=== PATIENT | male | born 1930 | race Caucasian/White ===

== ENCOUNTER → 2019-05-02 | Outpatient (CLI) | payer MEDICARE | END | disposition home or self-care (01) | LOC: RAH 10:41 | PROVIDERS: ATTEND Otolaryngology Plastic Surgery within the Head & Neck | DX: D11.0 Benign neoplasm of parotid gland (principal); K11.1 Hypertrophy of salivary gland | CPT/HCPCS: 76536 ==

== ENCOUNTER 2020-09-15 07:38 | Day surgery (SDC) | payer MEDICARE ==
[2020-09-12 15:21] LABS: BASOPHILS % (AUTO) 0.3 % (0.0-5.0); EOSINOPHILS % (AUTO) 0.6 % (0.0-8.0); HEMATOCRIT 45.9 % (42-54); LYMPHOCYTES % (AUTO) 21.3 % (21.0-51.0); MEAN CORPUSCULAR HEMOGLOBIN 28.2 pg (27.0-33.0); MEAN CORPUSCULAR HGB CONC 31.8 g/dL (32.0-36.0); MEAN CORPUSCULAR VOLUME 88.6 fL (79-99); MONOCYTES % (AUTO) 7.2 % (3.0-13.0); NEUTROPHILS % (AUTO) 69.4 % (40.0-77.0); PLATELET COUNT (AUTO) 184 K/uL (130-400); RED BLOOD CELL COUNT(AUTO) 5.18 MIL/uL (4.50-6.20); RED CELL DISTRIBUTION WIDTH 16.3 % (11.0-15.5); WHITE BLOOD COUNT (AUTO) 7.8 K/uL (4.8-10.8)
[2020-09-12 15:40] LABS: POTASSIUM 4.5 mmol/L (3.5-5.1)
[2020-09-12 15:43] LABS: INR 1.13 (0.85-1.15); PROTHROMBIN TIME 12.2 SEC (9.6-11.6)
[2020-09-12 15:44] LABS: PARTIAL THROMBOPLASTIN TIME 25.3 SEC (26.3-35.5)
[2020-09-12 16:15] VITALS: BP 125/62
[~2020-09-15] VITALS: Ht 175.3 cm; Wt 66.2 kg
[2020-09-15] VITALS (9 sets, daily range): BP systolic 115–146; BP diastolic 65–88
[~2020-09-15 07:38] MED LIST: AMLO-258 PO; APIX5TAB PO; ATEN50TA PO; ATOR-2 PO; LISI20TA24 PO
[2020-09-15] MEDS ORDERED: VANCOMYCIN 1G/250ML KIT 250 ML IV PRN (08:00)
[2020-09-15] MEDS ORDERED: 0.9%NACL 1000ML 1,000 ML IV ONE (08:08)
[2020-09-15] MEDS ORDERED: CEFAZOLIN SODIUM 1 GM VIAL ONE ×2 (10:48→10:58)
[2020-09-15] MEDS ORDERED: BUPIVACAINE/PF 0.25% 30ML VIAL IJ ONE (10:48)
[2020-09-15] MEDS ORDERED: MIDAZOLAM HCL 1 MG/ML 2ML VIAL ONE (10:48)
[2020-09-15] MEDS ORDERED: MEPERIDINE-PF 25 MG/ML SYG ONE (10:48)
[2020-09-15] MEDS ORDERED: LIDOCAINE HCL 1% MDV 50ML VIAL ONE (10:49)
[2020-09-15] MEDS ORDERED: TRAMADOL HCL 50 MG TABLET PO PRN (11:00)
[2020-09-15] MEDS ORDERED: TRAM50TA4 PO (11:02)
== END 2020-09-15 14:32 | disposition home or self-care (01) ==
LOC: DAH 07:38
PROVIDERS: ATTEND Internal Medicine Cardiovascular Disease
DX: Z45.010 Encounter for checking and testing of cardiac pacemaker pulse generator [battery] (principal); I44.2 Atrioventricular block, complete; I48.21 Permanent atrial fibrillation; I10 Essential (primary) hypertension; J44.9 Chronic obstructive pulmonary disease, unspecified; E78.5 Hyperlipidemia, unspecified; E11.9 Type 2 diabetes mellitus without complications; Z79.82 Long term (current) use of aspirin; Z79.899 Other long term (current) drug therapy; Z79.01 Long term (current) use of anticoagulants; Z98.890 Other specified postprocedural states
CPT/HCPCS: 33227; 36415; 80048; 85025; 85610; 85730; A4215; A4216; A4221; A4222; A4223 ×3; A4606; A4663; C1786; J0690 ×2; J2175; J2250; J3490 ×2; J7030; 99156; 99157